=== PATIENT | female | born 1985 | race Caucasian/White ===

== ENCOUNTER 2017-10-22 12:37 | Emergency (ER) | payer OTHER ==
[~2017-10-22] VITALS: Ht 149.9 cm; Wt 75.3 kg
[2017-10-22 12:50] VITALS: Ht 149.9 cm; Wt 75.3 kg
[2017-10-22 13:47] VITALS: BP 95/67
== END 2017-10-22 13:47 | disposition home or self-care (01) ==
LOC: ED 12:37
DX: J06.9 Acute upper respiratory infection, unspecified (principal)
CPT/HCPCS: Q0092

== ENCOUNTER 2020-04-18 19:13 | Emergency (ER) | payer MEDICAID ==
[~2020-04-18] VITALS: Ht 149.9 cm; Wt 86.2 kg
[2020-04-18 19:22] VITALS: Ht 149.9 cm; Wt 86.2 kg
[2020-04-18 20:07] LABS: BASOPHIL % 0.8 % (0.2-1.3); PLATELET COUNT 299 x10^3mcL (179-408)
[2020-04-18 20:28] LABS: CALCIUM 9.6 mg/dL (8.5-10.1); CARBON DIOXIDE 34.4 mmol/L (21-32); CHLORIDE SERUM 101 mmol/L (98-107); CREATININE SERUM 0.9 mg/dL (0.6-1.0); GFR1 > 60 mL/min; GLUCOSE SERUM 98 mg/dL (74-106); POTASSIUM SERUM 4.3 mmol/L (3.5-5.1); SODIUM SERUM 138 mmol/L (136-145)
[2020-04-18 20:33] LABS: ALBUMIN 3.7 g/dL (3.4-5.0); ALKALINE PHOSPHATASE 78 U/L (46-116); ALT/SGPT 34 U/L (14-59); AST/SGOT 15 U/L (15-37); BILIRUBIN TOTAL 0.3 mg/dL (0.20-1.00); LIPASE 187 IU/L (73-393); TOTAL PROTEIN, SERUM 7.6 g/dL (6.4-8.2)
[2020-04-18 22:18] VITALS: BP 99/61
== END 2020-04-18 22:18 | disposition home or self-care (01) ==
LOC: ED 19:13
PROVIDERS: Emergency Medicine
DX: N83.202 Unspecified ovarian cyst, left side (principal); N83.201 Unspecified ovarian cyst, right side
CPT/HCPCS: J1885